=== PATIENT | female | born 1950 | race Caucasian/White ===

== ENCOUNTER 2017-05-17 12:47 | Inpatient (IN) | payer MEDICARE, OTHER ==
[2017-05-17] VITALS (293 sets, daily range): BP systolic 92–165; BP diastolic 54–78; PULSE 99–121; TEMP 98–100.5; O2SAT 76–100
[~2017-05-17] VITALS: Ht 165.1 cm; Wt 103.8 kg
[~2017-05-17 12:47] MED LIST: ALLOPURINOL100 MG PO; ALLOPURINOL300 MG PO; CINNAMON500 MG PO; DHEA50 M1 PO; DICLOFENAC POT.50 MG PO; FORTAMET500 MG PO; GEMCOR600 MG PO; GLUCOSAMINE & C1 CAP PO; INSULIN L (H100 U/ML IJ; LISINOPRIL; MAGNESIUM OXIDE; MAGNESIUM500 MG PO; NITROFURANTOIN; NOVLOG SQ; PRILOSEC40 MG PO; SYNTHROID0.1 MG PO; SYNTHROID0.1 MG/TAB PO; ULTRAM 50MG TAB50 MG; VYTORIN; VYTORIN 10 MG-21 TAB PO; [UNRECOGNIZED DRUG - OTHER]; [UNRECOGNIZED DRUG - OTHER] PO
[2017-05-17 21:01] LABS: MEAN CELL VOLUME 95 fl (80.0-100.0); MEAN CORPUSCULAR HEMOGLOBIN 31 pg (27.0-31.0); MEAN CORPUSCULAR HGB CONC 33 g/dl (33.0-37.0); MEAN PLATELET VOLUME 9.3 fl (7.4-10.4); PLATELET COUNT 165 K/mm3 (130-400); RED BLOOD COUNT 3.88 M/mm3 (4.10-5.30); REDCELL DISTRIBUTION WIDTH-CV 13.5 % (11.5-14.5)
[2017-05-17 21:02] LABS: HEMATOCRIT 36.7 % (37.0-47.0)
[2017-05-17 21:14] LABS: ALBUMIN 3.2 gm/dL (3.5-5.0); BILIRUBIN,TOTAL 0.7 mg/dL (0.0-1.0); CALCIUM 8.4 mg/dL (8.4-10.2); CREATININE, serum 2.16 mg/dL (0.52-1.25); MAGNESIUM 1.4 mg/dL (1.6-2.3); PHOSPHOROUS 1.2 mg/dL (2.5-4.5); POTASSIUM 4.3 mmol/L (3.4-5.0); TOTAL PROTEIN 6.1 gm/dL (6.4-8.2)
[2017-05-17 21:59] LABS: ALLEN TEST YES; ARTERIAL BLD GAS O2 SATURATION 95.5 % (92-100); ARTERIAL BLOOD GAS BASE EXCESS -9.4 (-2-2); ARTERIAL BLOOD GAS HCO3 14.3 meq/L (22-26); ARTERIAL BLOOD GAS PO2 78.1 mmHg (80-100); ARTERIAL BLOOD GAS pH 7.37 (7.35-7.45); ATS? YES; OXYHEMOGLOBIN 94.8 %
[2017-05-18] VITALS (430 sets, daily range): BP systolic 85–107; BP diastolic 43–62; PULSE 56–93; TEMP 98–99.5; O2SAT 92–99
[2017-05-18 05:54] LABS: ADD PATHOLOGY DIFF REVIEW NO; HEMOGLOBIN 10.9 g/dl (12.5-16.0); MEAN CELL VOLUME 96 fl (80.0-100.0); MEAN CORPUSCULAR HEMOGLOBIN 31 pg (27.0-31.0); MEAN CORPUSCULAR HGB CONC 32 g/dl (33.0-37.0); PLATELET COUNT 165 K/mm3 (130-400); RED BLOOD COUNT 3.54 M/mm3 (4.10-5.30); REDCELL DISTRIBUTION WIDTH-CV 13.9 % (11.5-14.5); WHITE BLOOD COUNT 17.2 K/mm3 (4.8-10.8)
[2017-05-18 06:00] LABS: CALCIUM 7.7 mg/dL (8.4-10.2); CREATININE, serum 2.2 mg/dL (0.52-1.25); MAGNESIUM 1.7 mg/dL (1.6-2.3); PHOSPHOROUS 4.3 mg/dL (2.5-4.5); POTASSIUM 4.7 mmol/L (3.4-5.0)
[2017-05-18 06:37] LABS: BAND 35 % (0-10); NEUTROPHILS 50 % (42.0-75.2); TOTAL CELLS COUNTED 100
[2017-05-18 06:38] LABS: ANISOCYTOSIS 1+; PLATELET ESTIMATE NORMAL (NORMAL)
[2017-05-18] MEDS ORDERED: TOUJEO300 U/ML SQ (13:12)
[2017-05-18] MEDS ORDERED: ZANTAC 300300 MG PO (13:13)
[2017-05-18] MEDS ORDERED: K-TAB10 (13:14)
[2017-05-18] MEDS ORDERED: PRINIVIL10 MG PO (13:15)
[2017-05-19 01:56] VITALS: BP 100/46; PULSE 94; TEMP 98.6
[2017-05-19 05:04] VITALS: BP 125/75; PULSE 83; TEMP 98.2
[2017-05-19 07:40] LABS: MEAN CELL VOLUME 96 fl (80.0-100.0); MEAN CORPUSCULAR HGB CONC 32 g/dl (33.0-37.0); MEAN PLATELET VOLUME 10.5 fl (7.4-10.4); PLATELET COUNT 139 K/mm3 (130-400); RED BLOOD COUNT 3.39 M/mm3 (4.10-5.30)
[2017-05-19 07:42] LABS: HEMATOCRIT 32.6 % (37.0-47.0); HEMOGLOBIN 10.3 g/dl (12.5-16.0); MEAN CORPUSCULAR HEMOGLOBIN 30 pg (27.0-31.0)
[2017-05-19 07:43] LABS: ADD PATHOLOGY DIFF REVIEW NO
[2017-05-19 08:00] LABS: CALCIUM 7.8 mg/dL (8.4-10.2); CREATININE, serum 1.93 mg/dL (0.52-1.25); POTASSIUM 4.1 mmol/L (3.4-5.0)
[2017-05-19 08:19] LABS: BAND 28 % (0-10); NEUTROPHILS 69 % (42.0-75.2); TOTAL CELLS COUNTED 100
[2017-05-19 08:20] LABS: PLATELET ESTIMATE NORMAL (NORMAL)
[2017-05-19 09:57] VITALS: BP 118/67; PULSE 77; TEMP 97.9
[2017-05-19 13:55] VITALS: BP 122/71; PULSE 70; TEMP 98.8
== END 2017-05-19 18:13 | disposition home or self-care (01) | DRG 871 ==
LOC: SURG 12:47 → ICU 18:37 → SURG 05-18 09:22
PROVIDERS: Family Medicine; Internal Medicine Cardiovascular Disease; Nurse Practitioner Family; Urology
PROC: 0T768DZ Dilation of Right Ureter with Intraluminal Device, Via Natural or Artificial Opening Endoscopic (ICD-10-PCS; principal; 2017-05-17 16:45)
PROC: BT1DZZZ Fluoroscopy of Right Kidney, Ureter and Bladder (ICD-10-PCS; 2017-05-17 16:45)
DX: A41.9 Sepsis, unspecified organism (principal); E13.10 Other specified diabetes mellitus with ketoacidosis without coma; N13.6 Pyonephrosis; N17.9 Acute kidney failure, unspecified; E87.2 Acidosis; M79.7 Fibromyalgia; I10 Essential (primary) hypertension; E11.42 Type 2 diabetes mellitus with diabetic polyneuropathy; Z79.4 Long term (current) use of insulin; E87.5 Hyperkalemia
CPT/HCPCS: 99223; 99232-AI; 99233-AI; A4315; C1769; C2617; J0690; J1644; J1815; J2270; J2405; J2543; J2704; J3010; J3475; J7030; J7040; J7050; Q9967

== ENCOUNTER 2017-06-11 05:36 | Day surgery (SDC) | payer MEDICARE, OTHER ==
[~2017-06-11] VITALS: Ht 165.1 cm; Wt 95.6 kg
[~2017-06-11 05:36] MED LIST changes: +K-TAB10; +PRINIVIL10 MG PO; +TOUJEO300 U/ML SQ; +ZANTAC 300300 MG PO
[2017-06-11 06:03] VITALS: BP 139/74; PULSE 96; TEMP 98.2
[2017-06-11] MEDS ORDERED: ZYLOPRIM 300MG300 MG PO (06:45)
[2017-06-11] MEDS ORDERED: MAG-OX 400400 MG/TAB PO (06:47)
[2017-06-11] MEDS ORDERED: TUMERIC CURCUMIN PO (06:51)
[2017-06-11] MEDS ORDERED: GINGER ROOT EX250 MG PO (06:51)
[2017-06-11 09:25] VITALS: BP 122/83; PULSE 72; TEMP 97.4
[2017-06-11 09:40] VITALS: BP 133/79; PULSE 80
[2017-06-11 09:44] VITALS: TEMP 97.1
[2017-06-11 09:55] VITALS: BP 131/76; PULSE 78
[2017-06-11] MEDS ORDERED: PYRIDIUM200 M1 PO (10:00)
[2017-06-11] MEDS ORDERED: NORCO 325 MG-51 TAB PO (10:00)
[2017-06-11] MEDS ORDERED: COLACE 100100 MG/CAP PO (10:01)
[2017-06-11 10:10] VITALS: BP 129/69; PULSE 79
== END 2017-06-11 10:30 | disposition home or self-care (01) ==
LOC: SDCO 05:36
DX: N20.1 Calculus of ureter (principal); N20.0 Calculus of kidney; M19.90 Unspecified osteoarthritis, unspecified site; E11.9 Type 2 diabetes mellitus without complications; E78.00 Pure hypercholesterolemia, unspecified; E08.9 Diabetes mellitus due to underlying condition without complications; R20.9 Unspecified disturbances of skin sensation; I10 Essential (primary) hypertension; E78.1 Pure hyperglyceridemia; Z90.710 Acquired absence of both cervix and uterus; Z79.4 Long term (current) use of insulin; E03.9 Hypothyroidism, unspecified; Z83.3 Family history of diabetes mellitus; Z82.49 Family history of ischemic heart disease and other diseases of the circulatory system; Z87.442 Personal history of urinary calculi; F45.8 Other somatoform disorders; G43.909 Migraine, unspecified, not intractable, without status migrainosus
CPT/HCPCS: C1769; C1894; C2617; J0690; J2405; J2704; J3010; J7030

== ENCOUNTER 2021-05-06 07:23 | Day surgery (SDC) | payer MEDICARE, OTHER ==
[~2021-05-06] VITALS: Ht 165.1 cm; Wt 88.8 kg
[~2021-05-06 07:23] MED LIST changes: +COLACE 100100 MG/CAP PO; +GINGER ROOT EX250 MG PO; +MAG-OX 400400 MG/TAB PO; +NORCO 325 MG-51 TAB PO; +PYRIDIUM200 M1 PO; +TUMERIC CURCUMIN PO; +ZYLOPRIM 300MG300 MG PO
[2021-05-06 08:11] VITALS: BP 127/68; PULSE 80; TEMP 97.7
[2021-05-06] MEDS ORDERED: SYNTHROID0.1 MG/TAB PO (08:23)
[2021-05-06] MEDS ORDERED: TOUJEO300 U/ML SQ (08:23)
[2021-05-06] MEDS ORDERED: PRINIVIL10 MG PO (08:25)
[2021-05-06] MEDS ORDERED: MAGNESIUM500 MG PO (08:26)
[2021-05-06] MEDS ORDERED: PRILOSEC 20MG20 MG PO (08:26)
[2021-05-06] MEDS ORDERED: THE MEDICINE S200 M2 PO (08:27)
[2021-05-06] MEDS ORDERED: CINNAMON500 MG PO (08:28)
[2021-05-06] MEDS ORDERED: VITAMIN B COMPL1 SGL PO (08:28)
[2021-05-06] MEDS ORDERED: ELDERBERRY PO (08:32)
[2021-05-06] MEDS ORDERED: VITAMIN D31000 I1 PO (08:35)
[2021-05-06] MEDS ORDERED: NATURAL POTASS595 MG PO (08:37)
[2021-05-06] MEDS ORDERED: GLUCOSAMINE & C1 TAB PO (08:37)
[2021-05-06] MEDS ORDERED: NATURAL ST. JO300 MG PO (08:38)
[2021-05-06] MEDS ORDERED: TURMERIC500 MG PO (08:38)
--- NOTE | 2021-05-06 08:43 | NUR ---
DR CLEMENTE INTO TALK WITH PATIENT GATO MABRY INTO TALK WITH PATIENT CALL LIGHT IN REACH AT BEDSIDE.
[2021-05-06] MEDS ORDERED: NORCO 325 MG-51 TAB PO (09:54)
[2021-05-06 10:35] VITALS: BP 103/57; PULSE 64; TEMP 97.8
--- NOTE | 2021-05-06 10:35 | NUR ---
The patient arrived back to [facility] from the recovery room at this time. The patient appears alert and oriented and denies any pain or nausea at this time. The patient's post operative vital signs were started at this time. The patient agrees to try some ice chips at this time. There are 3 bandaids to her abdomen that appear clean, dry and intact. The patient's was brought back to be at her bedside. Call light is within reach. Will continue to monitor the patient.
[2021-05-06 10:50] VITALS: BP 103/48; PULSE 64
--- NOTE | 2021-05-06 10:50 | NUR ---
The patient's oxgyen saturation keeps dropping to 88-90% on room air so the patient was placed on 2L of oxygen per nasal cannula at this time. Vital signs appear stable. The patient appeared to tolerate the ice chips well and agrees to try some ice water and vanilla pudding at this time. Call light remains within reach. at bedside.
[2021-05-06 11:05] VITALS: BP 97/55; PULSE 65
--- NOTE | 2021-05-06 11:05 | NUR ---
The patient requests to try some more vanilla pudding at this time. The patient appears to be tolerating the oxygen well and maintains at 97-99% so she was weaned back to room air at this time. Will continue to monitor the patient.
[2021-05-06 11:20] VITALS: BP 104/56; PULSE 67
--- NOTE | 2021-05-06 11:20 | NUR ---
The patient ambulated to the bathroom with the stand by assistance of one nurse and appeared to tolerate the activity well. The patient voided without difficulty and voices a desire to be discharged home. The patient's is going to assist her to get dressed.
--- NOTE | 2021-05-06 11:40 | NUR ---
Discharge instructions were reviewed with the patient and her at this time. They both verbalized understanding and have no questions for the nurse. The patient's IV to her left wrist was removed and a pressure dressing was applied to the site. The patient is dressed and ready to be escorted out.
--- NOTE | 2021-05-06 11:50 | NUR ---
The patient was escorted out via wheelchair to a private vehicle by BRAN Escobar. The patient's belongings and discharge paperwork were sent with her. The patient's is present to drive her home.
== END 2021-05-06 11:50 | disposition home or self-care (01) ==
LOC: SDCO 07:23
DX: K80.10 Calculus of gallbladder with chronic cholecystitis without obstruction (principal); I10 Essential (primary) hypertension; E11.42 Type 2 diabetes mellitus with diabetic polyneuropathy; E78.00 Pure hypercholesterolemia, unspecified; G43.909 Migraine, unspecified, not intractable, without status migrainosus; E03.9 Hypothyroidism, unspecified; M81.0 Age-related osteoporosis without current pathological fracture; Z79.899 Other long term (current) drug therapy; G89.29 Other chronic pain; K21.9 Gastro-esophageal reflux disease without esophagitis; M19.90 Unspecified osteoarthritis, unspecified site; Z79.4 Long term (current) use of insulin
CPT/HCPCS: J0330; J0690; J1170; J1815; J2704; J3010; J7030